=== PATIENT | male | born 1980 | race Caucasian/White ===

== ENCOUNTER 2017-01-11 10:20 | Emergency (ER) | payer MEDICAID | END 2017-01-11 12:58 | disposition home or self-care (01) | LOC: D.ER 10:20 | DX: M54.5 Low back pain (principal); F17.200 Nicotine dependence, unspecified, uncomplicated ==

== ENCOUNTER 2017-02-11 18:00 | Emergency (ER) | payer MEDICAID | END 2017-02-11 20:00 | disposition home or self-care (01) | LOC: D.ER 18:00 | DX: S69.91XA Unspecified injury of right wrist, hand and finger(s), initial encounter (principal); X58.XXXA Exposure to other specified factors, initial encounter; Y93.89 Activity, other specified; Y92.019 Unspecified place in single-family (private) house as the place of occurrence of the external cause; S62.306A Unspecified fracture of fifth metacarpal bone, right hand, initial encounter for closed fracture; F17.200 Nicotine dependence, unspecified, uncomplicated ==

== ENCOUNTER 2017-05-09 04:25 | Emergency (ER) | payer MEDICAID ==
[2017-05-09 05:08] LABS: BASOPHILS 0.2 % (0-2); EOSINOPHILS 4.4 % (0-7); HEMATOCRIT 39.2 % (42.0-54.0); HEMOGLOBIN 13.1 g/dL (13.5-17.5); IMMATURE GRANULOCYTES 0.3 % (0-5); LYMPHOCYTES 19.7 % (15-50); MCH 30.5 pg (26.0-34.0); MCHC 33.4 g/dL (31.0-37.0); MCV 91.2 fL (80.0-100.0); MEAN PLATELET VOLUME 8.6 fL (7.4-10.4); MONOCYTES 7.9 % (2-11); NEUTROPHILS 67.5 % (40-80); PLATELET COUNT 541 10x3/uL (130-400); RDW 14.2 % (11.5-14.5); WBC 20.7 10x3/uL (4.8-10.8)
[2017-05-09 05:21] LABS: ALBUMIN 3.2 g/dL (3.4-5.0); ALKALINE PHOSPHATASE 84 U/L (46-116); ALT (SGPT) 53 U/L (10-68); CALC OSMOLALITY 271 mosm/kg (275-300); CALCIUM 9.5 mg/dL (8.5-10.1); CARBON DIOXIDE 31.4 mmol/L (21.0-32.0); CHLORIDE - SERUM 100 mmol/L (98-107); GLUCOSE 111 mg/dL (74-106); POTASSIUM - SERUM 4.6 mmol/L (3.5-5.1); PROTEIN - SERUM 8.2 g/dL (6.4-8.2); SODIUM 136 mmol/L (136-145); UREA NITROGEN 9 mg/dL (7-18); eGFR NON AFRICAN AMERICAN 89 mL/min (90-120)
== END 2017-05-09 07:02 | disposition home or self-care (01) ==
LOC: D.ER 04:25
PROVIDERS: Family Medicine
DX: L03.211 Cellulitis of face (principal); Z72.0 Tobacco use

== ENCOUNTER 2017-05-25 01:40 | Emergency (ER) | payer MEDICAID ==
[2017-05-25 02:24] LABS: BASOPHILS 0.3 % (0-2); EOSINOPHILS 4.3 % (0-7); HEMATOCRIT 35.4 % (42.0-54.0); HEMOGLOBIN 11.9 g/dL (13.5-17.5); IMMATURE GRANULOCYTES 0.3 % (0-5); LYMPHOCYTES 24.6 % (15-50); MCH 30.4 pg (26.0-34.0); MCHC 33.6 g/dL (31.0-37.0); MCV 90.5 fL (80.0-100.0); MONOCYTES 4.3 % (2-11); NEUTROPHILS 66.2 % (40-80); PLATELET COUNT 419 10x3/uL (130-400); RBC 3.91 10x6/uL (4.20-6.10); RDW 14.8 % (11.5-14.5); WBC 19.5 10x3/uL (4.8-10.8)
[2017-05-25 02:41] LABS: ALBUMIN 3.3 g/dL (3.4-5.0); ALKALINE PHOSPHATASE 72 U/L (46-116); ALT (SGPT) 43 U/L (10-68); BILIRUBIN - TOTAL 0.19 mg/dL (0.2-1.3); CALC OSMOLALITY 275 mosm/kg (275-300); CARBON DIOXIDE 26.6 mmol/L (21.0-32.0); CHLORIDE - SERUM 100 mmol/L (98-107); CREATININE - SERUM 1.1 mg/dL (0.6-1.3); GLUCOSE 129 mg/dL (74-106); POTASSIUM - SERUM 3.8 mmol/L (3.5-5.1); PROTEIN - SERUM 7.4 g/dL (6.4-8.2); SODIUM 137 mmol/L (136-145); UREA NITROGEN 12 mg/dL (7-18); eGFR NON AFRICAN AMERICAN 79 mL/min (90-120)
[2017-05-25 03:40] LABS: APPEARANCE HAZY (CLEAR); BILIRUBIN NEGATIVE (NEGATIVE); COLOR YELLOW (YELLOW); GLUCOSE NEGATIVE (NEGATIVE); KETONE NEGATIVE (NEGATIVE); LEUKOCYTE ESTERASE TRACE (NEGATIVE); NITRITE NEGATIVE (NEGATIVE); PROTEIN NEGATIVE (NEGATIVE); UROBILINOGEN NORMAL (NORMAL)
[2017-05-25 03:41] LABS: AMORPHOUS SEDIMENT >1+ /lpf (NONE SEEN); BACTERIA FEW /hpf (NONE SEEN); EPITHELIAL CELLS 0-5 /hpf (0-5); RED CELLS - URINE NONE SEEN /hpf (0-5); WHITE CELLS - URINE 0-5 /hpf (0-5)
== END 2017-05-25 04:32 | disposition home or self-care (01) ==
LOC: D.ER 01:40
PROVIDERS: Emergency Medicine
DX: N45.3 Epididymo-orchitis (principal); M54.5 Low back pain; F17.200 Nicotine dependence, unspecified, uncomplicated

== ENCOUNTER 2017-08-02 17:02 | Emergency (ER) | payer MEDICAID | END 2017-08-02 19:35 | disposition home or self-care (01) | LOC: D.ER 17:02 | DX: S81.812A Laceration without foreign body, left lower leg, initial encounter (principal); W22.8XXA Striking against or struck by other objects, initial encounter; Y93.89 Activity, other specified; Y92.89 Other specified places as the place of occurrence of the external cause; M79.605 Pain in left leg; F17.200 Nicotine dependence, unspecified, uncomplicated ==

== ENCOUNTER 2017-08-25 05:15 | Emergency (ER) | payer MEDICAID | END 2017-08-25 06:06 | disposition home or self-care (01) | LOC: D.ER 05:15 | DX: S01.80XA Unspecified open wound of other part of head, initial encounter (principal); X58.XXXA Exposure to other specified factors, initial encounter; Y93.89 Activity, other specified; Y92.029 Unspecified place in mobile home as the place of occurrence of the external cause; F17.200 Nicotine dependence, unspecified, uncomplicated ==

== ENCOUNTER 2018-02-14 12:26 | Emergency (ER) | payer MEDICAID | END 2018-02-14 14:09 | disposition home or self-care (01) | LOC: D.ER 12:26 | DX: L73.9 Follicular disorder, unspecified (principal); F17.200 Nicotine dependence, unspecified, uncomplicated ==

== ENCOUNTER → 2018-05-21 13:48 | Outpatient (CLI) | payer MEDICAID ==
[2018-05-21 15:12] LABS: BASOPHILS 0.5 % (0-2); EOSINOPHILS 6.7 % (0-7); HEMATOCRIT 45.3 % (42.0-54.0); IMMATURE GRANULOCYTES 0.2 % (0-5); LYMPHOCYTES 29.1 % (15-50); MCH 33.5 pg (26.0-34.0); MCHC 35.3 g/dL (31.0-37.0); MCV 94.8 fL (80.0-100.0); MONOCYTES 7.1 % (2-11); NEUTROPHILS 56.4 % (40-80); RBC 4.78 10x6/uL (4.20-6.10); RDW 13.2 % (11.5-14.5); WBC 11.1 10x3/uL (4.8-10.8)
[2018-05-21 15:14] LABS: PLATELET COUNT 293 10x3/uL (130-400)
[2018-05-21 16:18] LABS: ERYTHROCYTE SEDIMENTATION RATE 3 mm/hr (0-15)
[2018-05-22 08:23] LABS: RAPID PLASMA REAGIN Non Reactive (Non Reactive)
== END | disposition home or self-care (01) ==
LOC: D.LABREF 13:48
PROVIDERS: Student in an Organized Health Care Education/Training Program
DX: L73.9 Follicular disorder, unspecified (principal)

== ENCOUNTER → 2018-05-27 14:39 | Outpatient (CLI) | payer MEDICAID | END | disposition home or self-care (01) | LOC: D.CT 14:39 | DX: K04.7 Periapical abscess without sinus (principal); I63.9 Cerebral infarction, unspecified ==

== ENCOUNTER 2020-03-26 20:54 | Emergency (ER) | payer MEDICAID ==
[~2020-03-26] VITALS: Ht 172.7 cm; Wt 75.0 kg
[2020-03-26 20:59] VITALS: BP 140/78; Ht 172.7 cm; Wt 75.0 kg
[2020-03-26] MEDS ORDERED: NOLVADEX10 M1 (21:02)
== END 2020-03-26 21:58 | disposition home or self-care (01) ==
LOC: D.ER 20:54
DX: S29.012A Strain of muscle and tendon of back wall of thorax, initial encounter (principal); X58.XXXA Exposure to other specified factors, initial encounter

== ENCOUNTER 2020-08-20 22:31 | Emergency (ER) | payer MEDICAID ==
[~2020-08-20 22:31] MED LIST: NOLVADEX10 M1
[2020-08-20 22:58] VITALS: Ht 172.7 cm
[2020-08-20] MEDS ORDERED: AMOXICILLIN875 MG PO (23:39)
[2020-08-20 23:48] VITALS: BP 141/80
== END 2020-08-20 23:48 | disposition home or self-care (01) ==
LOC: D.ER 22:31
DX: M95.12 Cauliflower ear, left ear (principal)